=== PATIENT | female | born 2000 | race Two or more races ===

== ENCOUNTER 2024-09-26 14:45 | Emergency (ER) | payer OTHER ==
[~2024-09-26] VITALS: Ht 170.2 cm; Wt 68.0 kg
[2024-09-26] MEDS ORDERED: TETANUS & DIPHTHERIA TOX,ADULT 0.5 ML VIAL IM STA (17:10)
[2024-09-26] MEDS ORDERED: CEFAZOLIN SODIUM 1,000 MG VIAL IM STA (17:10)
[2024-09-26] MEDS ORDERED: KETOROLAC TROMETHAMINE 60 MG VIAL IM STA (18:16)
[2024-09-26] MEDS ORDERED: ACETAMINOPHEN WITH CODEINE 1 UDTAB TABLET PO STA (18:17)
== END 2024-09-26 19:53 | disposition home or self-care (01) ==
LOC: ER 14:47
DX: S61.122A Laceration with foreign body of left thumb with damage to nail, initial encounter (principal)